=== PATIENT | female | born 1995 | race Caucasian/White ===

== ENCOUNTER 2017-11-25 21:17 | Inpatient (IN) | payer OTHER ==
[~2017-11-25] VITALS: Ht 167.6 cm; Wt 96.2 kg
--- NOTE | 2017-11-25 21:24 | ED CARDIAC/CP/PALPITATIONS ---
History of Present Illness General Chief Complaint: Syncope and Near-Syncope Stated Complaint: BIBA SYNCOPE/TACHYCARDIA Source: patient, family Exam Limitations: no limitations Vital Signs & Intake/Output Vital Signs & Intake/Output Vital Signs Date Time Temp Pulse Resp B/P B/P Pulse O2 O2 Flow FiO2 Mean Ox Delivery Rate 11/26 0038 111 18 118/73 100 Room Air 11/26 0000 105 118/73 11/250 113 118/65 11/25 2199 113 118/65 11/253 114 20 118/65 100 Nasal 4.0L Cannula 11/25 2137 112 18 123/64 100 Nasal 4.0L Cannula 11/25 2136 120 153/73 11/25 2136 164 154/78 11/26 2135 164 153/78 11/26 2123 98.8 160 20 156/72 96 Room Air ED Intake and Output 11/26 0000 11/25 1200 Intake Total Output Total Balance Patient 200 lb Weight Weight Estimated Measurement Method Allergies Coded Allergies: NO KNOWN ALLERGIES (11/25/17) Reconcile Medications Ethinyl Estradiol/Drospirenone (Ocella 3 MG-0.03 MG Tablet) 0.03 MG-3 MG TABLET 1 TAB PO DAILY CONTROL (Reported) Triage Note: BIBA FROM [facility] S/P SYNCOPAL EPISODE. PATIENT REPORTS NAUSEA/VOMITTING BEFORE EPISODE OF NAUSEA BEGAN. PATIENT STATES "THIS HAPPENED A COUPLE YEARS AGO TOO BUT IM NOT SURE WHAT IT WAS". PATIENT ARRIVES ALERT, ORIENTED, SPEECH CLEAR. PROVIDER AT BEDSIDE. PATIENT PLACED ON CHICKEN HANDLER HR:170'S. Triage Nurses Notes Reviewed? yes Onset: Abrupt Duration: minute(s): Timing: single episode today Quality/Severity: moderate Location: central Radiation: no radiation Activities at Onset: "I was at [employer]" Modifying Factors: Improves With: rest. : No Patient currently breastfeeds: No HPI: 22 yo woman presents with syncope. She shares that she was eating dinner at [employer].... She had had part of [place]. She notes that she felt palpitations and suddenly, briefly passed out. She had never exprienced this symptom before. She notes that she felt lightheaded and dizzy. Per the medics, her pulse was 160's with stable blood pressure. Past History Travel History Traveled to [place] past 21 day No Medical History Any Pertinent Medical History? see below for history Neurological: NONE EENT: NONE Cardiovascular: NONE Respiratory: asthma Gastrointestinal: NONE Hepatic: NONE Renal: NONE Musculoskeletal: NONE Psychiatric: NONE Endocrine: NONE Blood Disorders: NONE Cancer(s): NONE Surgical History Surgical History: none Psychosocial History What is your primary language Jordanian Tobacco Use: Never used ETOH Use: occasional use Illicit Drug Use: marijuana Family History Hx Contributory? No Review of Systems Review of Systems Constitutional: Reports: no symptoms. EENTM: Reports: no symptoms. Respiratory: Reports: no symptoms. Cardiovascular: Reports: no symptoms. GI: Reports: no symptoms. Genitourinary: Reports: no symptoms. Musculoskeletal: Reports: no symptoms. Skin: Reports: no symptoms. Neurological/Psychological: Reports: no symptoms. Hematologic/Endocrine: Reports: no symptoms. Immunologic/Allergic: Reports: no symptoms. All Other Systems: Reviewed and Negative Physical Exam Physical Exam General Appearance: well developed/nourished, mild distress Head: atraumatic, normal appearance Eyes: Bilateral: normal appearance. Ears, Nose, Throat: normal pharynx, normal ENT inspection Neck: normal inspection, supple, full range of motion Respiratory: normal breath sounds, chest non-tender, no respiratory distress, quiet respiration, lungs clear Cardiovascular: tachycardic Gastrointestinal: normal bowel sounds, soft, non-tender Back: normal inspection, normal range of motion Extremities: normal inspection Neurologic/Psych: no motor/sensory deficits, awake, alert, oriented x 3 Skin: intact, normal color Lymphatic: adenopathy Core Measures ACS in differential dx? No CVA/TIA Diagnosis No Sepsis Present: No Sepsis Focused Exam Completed? No Progress Differential Diagnosis: svt vs other. Plan of Care: Orders Procedure Date/time Status Regular Diet 11/26 B Active LIPID PANEL 11/26 599 Active CBC WITHOUT DIFFERENTIAL 11/26 599 Active BASIC ELECTROLYTES PLUS BUN&CR 11/26 599 Active ECHOCARDIOGRAM 11/26 599 Active Pathway - chart 11/26 012 Active House Staff 11/26 012 Active Weight 11/26 112 Active Vital Signs 11/26 112 Active Teach/Educate 11/26 112 Active Pain Treatment and Response 11/26 112 Active Nutritional Intake, Monitor 11/26 112 Active Isolation 11/26 112 Active Intake & Output 11/26 112 Active Patient Care Conference 11/26 112 Active Activity/Ambulation 05/21 0113 Active Lab Add-on Test 11/26 UNK Active VTE Mechanical Prophylaxis 11/26 UNK Active Saline Lock 11/25 2322 Active Misc Message 11/25 2322 Active ED Holding Orders 11/25 2322 Active Admit to inpatient 11/25 2322 Active Vital Signs 11/25 2322 Active Code Status 11/25 2322 Active URINE DRUG SCREEN FOR ER ONLY 11/25 2321 Complete EKG 11/25 2156 Active THYROID STIMULATING HORMONE 11/25 2137 Active GLYCOSYLATED HGB 11/25 2137 Active FREE T4 11/25 2137 Active TROPONIN LEVEL 11/26 2123 Active LIPASE 11/26 2123 Active HEPATIC FUNCTION PANEL 11/26 2123 Active HUMAN BETA HCG SCREEN 11/26 2123 Active ETHANOL 11/26 2123 Active D-DIMER 11/26 2123 Complete CBC WITHOUT DIFFERENTIAL 11/26 2123 Complete BASIC METABOLIC PANEL 11/26 2123 Active AMYLASE 11/26 2123 Active Intake & Output 11/25 2120 Active EKG 11/25 2117 Active Patient Data 11/25 1644 Active Current Medications Sig/Sagar Start time Last Medication Dose Stop Time Status Admin Enoxaparin Sodium 40 MG DAILY 11/26 0900 AC (Lovenox) Adenosine 12 MG ONCE ONE 11/25 2144 CAN (Adenocard) 11/25 2145 Diltiazem HCl 10 MG ONCE ONE 11/25 2144 CAN (Cardizem) 11/25 2145 Verapamil HCl 5 MG ONE ONE 11/25 2129 CAN (Calan 5MG/2ML Inj) 11/25 2130 Laboratory Tests 11/25/178: Urine Opiates Screen < 100, Methadone Screen < 40, Barbiturate Screen < 60, Ur Phencyclidine Scrn < 6.00, Amphetamines Screen < 100, U Benzodiazepines Scrn < 85, Urine Cocaine Screen < 50, Urine Cannabis Screen > 80.00 H 11/25/172137: Anion Gap 14, Estimated GFR > 60, BUN/Creatinine Ratio 12.5, Glucose 128 H, Hemoglobin A1c Pending, Calcium 9.3, Total Bilirubin 0.3, Direct Bilirubin 0.1, AST 15, ALT 11, Alkaline Phosphatase 53, Troponin I < 0.01, Total Protein 7.0, Albumin 4.1, Amylase 65, Lipase 79, TSH 1.090, Free T4 1.03, Total Beta HCG NEGATIVE, D-Dimer High Sensitivty < 200, CBC w Diff NO MAN DIFF REQ, RBC 4.98, MCV 81.8, MCH 27.6, MCHC 33.7, RDW 13.2, MPV 7.9, Gran % 71.0, Lymphocytes % 19.9 L, Monocytes % 5.5, Eosinophils % 3.3, Basophils % 0.3, Absolute Granulocytes 12.6 H, Absolute Lymphocytes 3.5 H, Absolute Monocytes 1.0 H, Absolute Eosinophils 0.6, Absolute Basophils 0.1, Serum Alcohol 10.0 Diagnostic Imaging: Viewed by Me: Radiology Read. Discussed w/RAD: Radiology Read. CXR Impression: PATIENT: HIPOLITO MONTELONGO PRESENT AGE: 22 PATIENT ACCOUNT NO: [id number] : 96 LOCATION: [facility] ORDERING PHYSICIAN: Nathen Burrows MD SERVICE DATE: 11/25/17 EXAM TYPE: RAD - XRY- PORTABLE CHEST XRAY EXAMINATION: CHEST 1 VIEW CLINICAL INFORMATION: Chest pain. COMPARISON: None. TECHNIQUE: An AP view of the chest is provided. FINDINGS: The cardiac silhouette is not enlarged. The mediastinal and hilar contours are unremarkable. There are neither pleural effusions nor pneumothoraces. There are no consolidations. The osseous structures are unremarkable. IMPRESSION: No evidence for acute disease. DICTATED BY: Jorgito Perez MD DATE/TIME DICTATED:2318 FINISHER CARD TENDER:STAR DATE/TIME TRANSCRIBED:11/25/172318 CONFIDENTIAL, DO NOT COPY WITHOUT APPROPRIATE AUTHORIZATION. <Electronically signed in Other Vendor System> SIGNED BY: Jorgito Perez MD 11/25/17 1417 Initial ED EKG: svt 150's Repeat EKG: changed (rate low 100's) Departure Departure Disposition: STILL A PATIENT Condition: Stable Clinical Impression Primary Impression: SVT (supraventricular tachycardia) Referrals: Fernando Ayala MD Departure Forms: Customer Survey General Discharge Information Admission Note Spoke With: Nish Moore MD Documentation of Exam: Documentation of any treatments & extenuating circumstances including Concerns Regarding Discharge (functional status, medication knowledge or non-compliance, living conditions, etc.) that warrant an admission rather than observation: Pt with syncope and svt/sinus tach, unresponsive to adenosince 6mg, 12mg, requiring multiple rounds of rate controlling medications.... discussed with dr. mehta. Critical Care Note Critical Care Note Critical Care Time: 30-74 min
[2017-11-25] MEDS ORDERED: OCELLA 3 MG-0.1 EACH PO (21:44)
[2017-11-25 22:02] LABS: ABSOLUTE BASOPHIL COUNT 0.1 /CUMM (0.0-0.2); ABSOLUTE EOSINOPHIL COUNT 0.6 /CUMM (0.0-0.7); ABSOLUTE GRANULOCYTE CT 12.6 /CUMM (1.4-6.5); ABSOLUTE LYMPH COUNT 3.5 /CUMM (1.2-3.4); BASOPHIL % 0.3 % (0.0-2.0); EOSINOPHIL % 3.3 % (0-5); HEMATOCRIT 40.8 % (37-47); MEAN CORPUSCULAR HGB 27.6 PG (27.0-31.0); MEAN CORPUSCULAR HGB CONC 33.7 G/DL (33.0-37.0); MEAN CORPUSCULAR VOLUME 81.8 FL (81.0-99.0); MEAN PLATELET VOLUME 7.9 FL (7.4-10.4); PLATELET COUNT 419 /CUMM (130-400); RBC DISTRIBUTION WIDTH 13.2 % (11.5-14.5); RED BLOOD CELL CT 4.98 /CUMM (4.20-5.40); WHITE BLOOD CELL COUNT 17.7 /CUMM (4.8-10.8)
--- NOTE | 2017-11-25 23:23 | RADIOLOGY REPORT ---
EXAMINATION: CHEST 1 VIEW CLINICAL INFORMATION: Chest pain. COMPARISON: None. TECHNIQUE: An AP view of the chest is provided. FINDINGS: The cardiac silhouette is not enlarged. The mediastinal and hilar contours are unremarkable. There are neither pleural effusions nor pneumothoraces. There are no consolidations. The osseous structures are unremarkable. IMPRESSION: No evidence for acute disease.
--- NOTE | 2017-11-26 00:10 | History & Physical ---
Ellie Mathur MD 11/26/17 0010: General Information and HPI MD Statement: I have seen and personally examined HIPOLITO MONTELONGO and documented this H&P. The patient is a 22 year old F who presented with a patient stated chief complaint of [syncope]. Source of Information: patient Exam Limitations: no limitations History of Present Illness: 22-year-old female with no past medical history who was brought in by ambulance for evaluation after syncope patient reports that she was at [facility] around 7:30 PM. Patient did not eat anything all day. She drank 1 symone. After which she was on her way to use the restroom when she feels nauseous, dizzy ,week and vomited once and passed out. The patient cannot recall the incidents however she regained consciousness right after and felt much better. Patient denies any chest pain, lightheadedness, palpitation before or after syncope. Of note the patient had 2 episodes of syncope in the past at the age of 7 and 14 however she did not seek medical help for that, she thinks it was due to hypoglycemia. She also denies any headache or focal weakness or numbness. She denies recent travel or sick contacts, she is on control ([place] 1 tablet p.o. daily, her last menstrual period was 3 weeks ago The ED patient had heart rate of 170 and received adenosine 6 mg followed by another dose of 12 mg, she also received diltiazem 30 mg p.o., verapamil 5 mg, 2 doses of metoprolol 5 mg IV, after which her heart rate improved to 104 with normal intervals Allergies/Medications Allergies: Coded Allergies: NO KNOWN ALLERGIES (11/25/17) Home Med list Ethinyl Estradiol/Drospirenone (Ocella 3 MG-0.03 MG Tablet) 0.03 MG-3 MG TABLET 1 TAB PO DAILY CONTROL (Reported) Past History Travel History Traveled to [place] past 21 day No Medical History Neurological: NONE EENT: NONE Cardiovascular: NONE Respiratory: asthma Gastrointestinal: NONE Hepatic: NONE Renal: NONE Musculoskeletal: NONE Psychiatric: NONE Endocrine: NONE Blood Disorders: NONE Cancer(s): NONE Surgical History Surgical History: non-contributory Past Family/Social History Family History Relations & Conditions if any FATHER Relation not specified for: FH: pulmonary embolism Psychosocial History ETOH Use: occasional use Illicit Drug Use: marijuana Review of Systems Review of Systems Constitutional: Reports: weakness. Cardiovascular: Reports: syncope. Respiratory: Denies: no symptoms. GI: Denies: no symptoms. Genitourinary: Denies: no symptoms. Musculoskeletal: Denies: no symptoms. Skin: Denies: no symptoms. Neurological/Psychological: Denies: no symptoms. Exam & Diagnostic Data Last 24 Hrs of Vital Signs/I&O Vital Signs Date Time Temp Pulse Resp B/P B/P Pulse O2 O2 Flow FiO2 Mean Ox Delivery Rate 11/26 0038 111 18 118/73 100 Room Air 11/26 0000 105 118/73 11/25 2199 113 118/65 11/25 2199 113 118/65 11/25 2142 114 20 118/65 100 Nasal 4.0L Cannula 11/25 2137 112 18 123/64 100 Nasal 4.0L Cannula 11/25 2136 120 153/73 11/25 2136 164 154/78 11/26 2135 164 153/78 11/26 2123 98.8 160 20 156/72 96 Room Air Intake & Output 11/26 0800 11/26 0000 11/25 1600 Intake Total Output Total Balance Patient 212 lb 200 lb Weight Weight Estimated Measurement Method Physical Exam General Appearance Alert, Oriented X3, Cooperative, OVERWEIGHT HEENT Atraumatic, PERRLA, EOMI, Mucous Membr. moist/pink Neck Supple, No JVD Cardiovascular Normal S1, Normal S2 Lungs Clear to Auscultation, Normal Air Movement Abdomen Normal Bowel Sounds, Soft Neurological Normal Speech, Strength at 5/5 X4 Ext, Normal Tone, Sensation Intact, Cranial Nerves 3-12 NL Extremities No Clubbing, No Cyanosis, No Edema Vascular Normal Pulses Assessment/Plan Assessment: 22-year-old female with no past medical history who was brought in by ambulance for evaluation after syncope patient reports that she was at [facility] around 7:30 PM. Patient did not eat anything all day. She drank 1 symone. After which she was on her way to use the restroom when she feels nauseous, dizzy ,week and vomited once and passed out. Differential diagnosis includes arrhythmia versus vasovagal Vitals on admission: Blood pressure 1 1 8/73, pulse 113, pulse ox 100 on room air Labs on admission: CBC showed leukocytosis with WBC 17.7, platelets 419, stable H&H, BEP shows sodium 140, potassium 3.8, BUN 10, creatinine 0.8, glucose 128, TSH 1, free T4 1.03, d-dimer less than 200, U tox was negative except for cannabis more than 80 Chest x-ray was within normal limits Problem list: Syncope SVT Plan: Admit to telemetry Continuous telemetry monitoring Vitals every shift Cardiology consult appreciated Echocardiogram U tox Patient is very anxious to go home first thing in the morning. She does not want to take days off from her work Regular diet DVT prophylaxis with subcutaneous Lovenox Full code As Ranked By This Provider Problem List: 1. SVT (supraventricular tachycardia) Core Measures/Misc (03/25) Acute Coronary Syndrome ACS Diagnosis: No Congestive Heart Failure Congestive Heart Failure Diagnosis No Cerebrovascular Accident CVA/TIA Diagnosis: No VTE (View Protocol) VTE Risk Factors Estrogen Therapy No Mechanical VTE Prophylaxis d/t N/A MechProphylax Ordered No VTE Pharm Prophylaxis d/t NA PharmProphylax ordered Sepsis (View protocol) Sepsis Present: No Joe Byers MD 11/26/17 0012: Resident Review Statement Resident Statement: discussed with international logistics manager, agreed with international logistics manager Other Findings: 22 yo morbidly obese F with no past medical history, and who was in her usual state of health till this evening. At 7:30 PM, she was at a restaurant ([employer]) , hadn't eaten all day, had one symone (alcohol) there, but no food, and was going to the restroom when she felt nauseaous, felt weak, vomited once, couldn' t make it to the bathroom, and then does NOT remember events then on. Prior to this event, she did not have any other symptom, and was confused only for few seconds after the incident. Her only medication is OCP, and she had taken Zyrtec earlier today. Had "passed out" two years before, did not get evaluated for that. Last time, she was not nauseaous or weak though. She has had two other similar episodes in her teenage but self-attributed to hypoglycemia (she is NOT diabetic) and did not get it checked then. 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 Never seen a senior materials planner that she can remember. Smoking- occassional EtOH- 2 /week Recreational- Marijuana, no others FH: Father- Pulmonary embolism Grandfather (Paternal)- [place] Maternal grandmother- Breast cancer In the ED, she was found to be in SVT, required IV Metoprolol tartarate 5 mg, 6 mg of IV Adenosine, 12 mg of Adenosine, another IV Metoprolol tartarate 5 mg ( total 10 mg), IV Verapamil 5 mg, and then PO Diltiazem 30 mg. At the time of interview, she was with her male friend and resting, with HR around 104s. She is being admitted in the telemetry floor for the management of following issues: # New supraventicular tachycardia, rate getting controlled Patient's EKG pattern and her clinical diagnosis gives the diagnosis of SVT, and the fact that she responded to multiple medications only, she requires telemetry monitoring and further Cardiologic evaluation and management. Echocardiogram ordered to rule out functional and structural status of the heart. Thyroid function test added to existing labs. # Syncope, cardiologic (likely 2/2 SVT) Patient lost consciousness during the incident, and given her current cardiac rhythm, she likely had SVT at the restaurant as well, making cardiac cause as most likely. Other causes need to be in the differentials too. Telemetric monitoring for changes in cardiac rate/rhythm, and close observation on blood pressure. Currently she does not have any focal neurologic deficit that would warrant any neurologic investigation or consultation. #Housekeeping Diet: Regular diet DVT ppx: SQ Lovenox Code status: Full code Of note, patient mentioned that she is curious to get discharged as soon as possible. Nish Moore 11/26/17 0339: Attending MD Review Statement Attending Statement Attending MD Statement: examined this patient, discuss w/resident/PA/ELECTROPLATING TECHNICIAN, agreed w/resident/PA/ELECTROPLATING TECHNICIAN, reviewed EMR data (avail), reviewed images, amended to note Attending Assessment/Plan: CC: Syncope PMH: History of murmur Patient was brought in ER through EMS from [facility] after episode of syncope. Patient states that she finished her dinner, had one glass of Symone and was going to bathroom on her way she suddenly passed out she felt nauseous before the episode but does not recall anything thereafter. She woke up on the floor and people were surrounding her, she was confused for less than 1 minute and completely oriented thereafter. Given his sudden syncopal episode, EMS was called and patient was transferred to hospital. In route her heart rate was elevated according to EMS. Patient currently denies any palpitation, dizziness, chest pain. She had 2 fainting episodes in the past, at the age of 7 and 14. She was never investigated for any arrhythmias. Vitals: Temperature 98.8, pulse 160s on arrival improved to 105 after treatment, saturating 96% on room air, RR 20, blood pressure 156/72 On exam: A O 3, cooperative, no acute distress, neck supple, JVD normal, no lymphadenopathy, mucosa moist, no focal neurological deficit, no dependent edema , no obvious skin rashes or inflammation CVS: S1-S2, RRR. RS: Clear to auscultate bilaterally. Abdomen: Soft, NT, ND, bowel sounds present. CXR: No evidence for acute disease. Assessment and plan 22-year-old female with no significant past medical history presented in ER after syncope and collapse which happened at a restaurant. She was found to have supraventricular tachycardia with heart rate in the 160s to 170s. Patient received 6 mg adenosine followed by 12 mg of Indocin without much response. Then she received 2 doses of IV metoprolol 5 mg each and 5 mg of verapamil. With all this treatment her heart rate came down to 105, sinus tachycardia. Currently patient asymptomatic given her syncopal episode and SVT she would benefit from telemetry monitoring, cardiac consultation for further evaluation. Even though patient is on oral contraception, low probability of PE. D-dimer negative. + Syncope and collapse + Supraventricular tachycardia - Admit to telemetry - Continuous telemetry monitoring - Cardiology consult - Transthoracic echocardiogram in a.m. - Check TSH - Check U tox - DVT prophylaxis - Patient wants to go home as soon as possible tomorrow morning, she does not want to miss anymore of days.
[2017-11-26 01:30] VITALS: BP 108/68
--- NOTE | 2017-11-26 03:41 | Admission Certification ---
Admission Certification Certification Statement - As attending physician, I certify that at the time of - admission, based on clinical presentation, severity of - symptoms, need for further diagnostic testing and - therapeutic interventions, and risk of adverse outcomes - without in-hospital treatment, in my clinical assessment, - this patient requires an acute hospital stay for a minimum - of two nights or longer. I have also considered psychsocial - factors such as support system, advanced age, financial - issues, cognitive issues, and failed out-patient treatments, - past re-admission history, safety of patient, and lack of - compliance as applicable. Specific rationale supporting this admission is: Supraventricular tachycardia, syncope and collapse
[2017-11-26 07:03] VITALS: BP 106/70
--- NOTE | 2017-11-26 07:17 | PN- Housestaff ---
Subjective Follow-up For: SVT syncope Tele-Events Since Last Visit: sinus rhythm/ sinus tachycardia 80s-110s overnight, no more episodes of SVT Subjective: no complaints this morning Review of Systems Constitutional: Reports: see HPI. Objective Last 24 Hrs of Vital Signs/I&O Vital Signs Date Time Temp Pulse Resp B/P B/P Pulse O2 O2 Flow FiO2 Mean Ox Delivery Rate 11/26 0703 98.7 93 20 106/70 98 Room Air 11/26 0130 99.3 120 20 108/68 98 Room Air 11/26 0038 111 18 118/73 100 Room Air 11/26 0000 105 118/73 11/25 2199 113 118/65 11/25 2199 113 118/65 11/25 214 114 20 118/65 100 Nasal 4.0L Cannula 11/25 2137 112 18 123/64 100 Nasal 4.0L Cannula 11/25 2136 120 153/73 11/25 2136 164 154/78 11/26 2135 164 153/78 11/26 2123 98.8 160 20 156/72 96 Room Air Intake & Output 11/26 1600 11/26 0800 11/26 0000 Intake Total 220 Output Total Balance 220 Intake, Oral 220 Patient 96.19 kg 90.718 kg Weight Weight Estimated Measurement Method Physical Exam General Appearance: Alert, Oriented X3, Cooperative, No Acute Distress Cardiovascular: Normal S1, Normal S2, No Murmurs, tachycardic Lungs: Clear to Auscultation, Normal Air Movement Abdomen: Normal Bowel Sounds, Soft, No Tenderness, No Masses Extremities: No Clubbing, No Cyanosis, No Edema, Normal Pulses Current Medications: Current Medications Sig/Sagar Start time Last Medication Dose Route Stop Time Status Admin Adenosine 12 MG ONCE ONE 11/25 2144 CAN IV 11/25 2145 Adenosine 0 .STK-MED ONE 11/25 2140 DC IV Adenosine 0 .STK-MED ONE 11/26 2139 DC IV Adenosine 0 .STK-MED ONE 11/25 2134 DC IV Adenosine 0 .STK-MED ONE 11/25 2130 DC IV Adenosine 6 MG ONCE ONE 11/25 2129 DC 11/25 IV 11/25 Adenosine 12 MG ONCE ONE 11/25 2129 DC 11/25 IV 11/25 Diltiazem HCl 30 MG STAT STA 11/25 2238 DC 11/26 PO 11/25 2240 0000 Diltiazem HCl 10 MG ONCE ONE 11/25 2144 CAN IV 11/25 2145 Enoxaparin Sodium 40 MG DAILY 11/26 0900 AC SC Metoprolol Tartrate 5 MG ONCE ONE 11/25 2144 DC 11/25 IV 11/25 Metoprolol Tartrate 0 .STK-MED ONE 11/25 2141 DC IV Metoprolol Tartrate 0 .STK-MED ONE 11/25 2136 DC IV Metoprolol Tartrate 5 MG ONCE ONE 11/25 2129 DC 11/25 IV 11/25 Verapamil HCl 5 MG ONE ONE 11/25 2144 DC 11/25 IV 11/25 Verapamil HCl 5 MG ONE ONE 11/25 2129 CAN IV 11/25 2130 Last 24 Hrs of Lab/Jhonatan Results Last 24 Hrs of Labs/Mics: Laboratory Tests 11/26/17 0646: Anion Gap 9, Estimated GFR > 60, BUN/Creatinine Ratio 11.3, Triglycerides 159 H , Cholesterol 147, LDL Cholesterol, Calc 67, HDL Cholesterol 49, Cholesterol/HDL Ratio 3, CBC w Diff NO MAN DIFF REQ, RBC 4.35, MCV 82.6, MCH 28.0, MCHC 33.9, RDW 13.1, MPV 8.2, Gran % 79.4 H, Lymphocytes % 12.9 L, Monocytes % 6.1, Eosinophils % 1.5, Basophils % 0.1, Absolute Granulocytes 8.8 H, Absolute Lymphocytes 1.4, Absolute Monocytes 0.7 H, Absolute Eosinophils 0.2, Absolute Basophils 0 11/25/178: Urine Opiates Screen < 100, Methadone Screen < 40, Barbiturate Screen < 60, Ur Phencyclidine Scrn < 6.00, Amphetamines Screen < 100, U Benzodiazepines Scrn < 85, Urine Cocaine Screen < 50, Urine Cannabis Screen > 80.00 H 11/25/172137: Anion Gap 14, Estimated GFR > 60, BUN/Creatinine Ratio 12.5, Glucose 128 H, Hemoglobin A1c Pending, Calcium 9.3, Total Bilirubin 0.3, Direct Bilirubin 0.1, AST 15, ALT 11, Alkaline Phosphatase 53, Troponin I < 0.01, Total Protein 7.0, Albumin 4.1, Amylase 65, Lipase 79, TSH 1.090, Free T4 1.03, Total Beta HCG NEGATIVE, D-Dimer High Sensitivty < 200, CBC w Diff NO MAN DIFF REQ, RBC 4.98, MCV 81.8, MCH 27.6, MCHC 33.7, RDW 13.2, MPV 7.9, Gran % 71.0, Lymphocytes % 19.9 L, Monocytes % 5.5, Eosinophils % 3.3, Basophils % 0.3, Absolute Granulocytes 12.6 H, Absolute Lymphocytes 3.5 H, Absolute Monocytes 1.0 H, Absolute Eosinophils 0.6, Absolute Basophils 0.1, Serum Alcohol 10.0 Assessment/Plan Assessment: 22 year old female with no past medical history syncopized in the setting of nausea and vomiting and was admitted for SVT. Syncope: Likely vasovagal from Valsalva with vomiting vs arrhythmia Check orthostatic vital signs May need outpatient Holter monitor SVT: Asymptomatic, No complaints of palpitations during SVT Urine toxicology negative, no significant caffeine intake Given adenosine x 2 in the ED + verapamil, cardizem, and metoprolol Continue to monitor on telemetry monitoring Cardiology consultation Check echocardiogram TSH negative Regular diet DVT ppx-lovenox subcutaneous Full code Problem List: 1. SVT (supraventricular tachycardia) 2. Syncope Pain Ratin Pain Location: n/a Pain Goal: Pain 4 or less Pain Plan: prn Tomorrow's Labs & Rationales: none
[2017-11-26 08:00] LABS: ABSOLUTE BASOPHIL COUNT 0 /CUMM (0.0-0.2); ABSOLUTE EOSINOPHIL COUNT 0.2 /CUMM (0.0-0.7); ABSOLUTE GRANULOCYTE CT 8.8 /CUMM (1.4-6.5); ABSOLUTE LYMPH COUNT 1.4 /CUMM (1.2-3.4); ABSOLUTE MONOCYTE COUNT 0.7 /CUMM (0.10-0.60); BASOPHIL % 0.1 % (0.0-2.0); EOSINOPHIL % 1.5 % (0-5); GRANULOCYTE % 79.4 % (42.2-75.2); HEMATOCRIT 35.9 % (37-47); MEAN CORPUSCULAR HGB CONC 33.9 G/DL (33.0-37.0); MEAN CORPUSCULAR VOLUME 82.6 FL (81.0-99.0); MEAN PLATELET VOLUME 8.2 FL (7.4-10.4); PLATELET COUNT 282 /CUMM (130-400); RBC DISTRIBUTION WIDTH 13.1 % (11.5-14.5); RED BLOOD CELL CT 4.35 /CUMM (4.20-5.40)
--- NOTE | 2017-11-26 12:38 | Patient Discharge Instructions ---
Discharge Instructions General Discharge Information You were seen/treated for: unresponsiveness increased heart rate Special Instructions: follow up with primary care physician within one week of discharge follow up with cardiolgist within this week of disharge (november 29 or sundaynovember 30) Acute Coronary Syndrome Inclusion Criteria At DC or during hospital stay patient has or had the following: ACS DIAGNOSIS No Discharge Core Measures Meds if any: Prescribed or Continued at Discharge Meds if any: NOT Prescribed or Continued at Discharge Congestive Heart Failure Inclusion Criteria At DC or during hospital stay patient has or had the following: CHF DIAGNOSIS No Discharge Core Measures Meds if any: Prescribed or Continued at Discharge Meds if any: NOT Prescribed or Continued at Discharge Cerebrovascular accident Inclusion Criteria At DC or during hospital stay patient has or had the following: CVA/TIA Diagnosis No Discharge Core Measures Meds if any: Prescribed or Continued at Discharge Meds if any: NOT Prescribed or Continued at Discharge Venous thromboembolism Inclusion Criteria VTE Diagnosis No VTE Type NONE VTE Confirmed by (Test) NONE Discharge Core Measures - Per Current guidelines, there needs to be overlap - treatment for the first 5 days of Warfarin therapy. - If discharged on Warfarin prior to 5 days of - overlap therapy, the patient will need to be - assessed for post discharge needs including - *Post discharge parental anticoagulation - *Warfarin and/or parental anticoagulation education - *Follow up date to check INR post discharge At least 5 days overlap therapy as Inpatient No Meds if any: Prescribed or Continued at Discharge Note: Overlap Therapy is Warfarin and Anticoagulant Meds if any: NOT Prescribed or Continued at Discharge
--- NOTE | 2017-11-26 12:43 | Cons- Cardiology ---
General Information and HPI Allergies/Medications Allergies: Coded Allergies: NO KNOWN ALLERGIES (11/25/17) Home Med List: Ethinyl Estradiol/Drospirenone (Ocella 3 MG-0.03 MG Tablet) 0.03 MG-3 MG TABLET 1 TAB PO DAILY CONTROL (Reported) Metoprolol Succ XL (Toprol XL) 25 MG TAB 1 TAB PO DAILY SVT . Past History Travel History Traveled to [place] past 21 day No Medical History Blood Transfusion Hx: No Neurological: NONE EENT: NONE Cardiovascular: NONE Respiratory: asthma Gastrointestinal: NONE Hepatic: NONE Renal: NONE Musculoskeletal: NONE Psychiatric: NONE Endocrine: NONE Blood Disorders: NONE Cancer(s): NONE Surgical History Surgical History: 1 Family History Relations & Conditions If Any: FATHER Relation not specified for: FH: pulmonary embolism Psychosocial History Where Do You Live? Home Smoking Status: Never Smoked ETOH Use: occasional use Illicit Drug Use: marijuana Assessment/Plan Assessment/Plan Assessment: 1. Syncope 2. Paroxysmal SVT, currently in sinus rhythm 3. Unremarkable echocardiogram Plan: * start Toprol-XL 25 milligrams daily * okay for discharge from cardiac standpoint * follow-up in the office in 1 week Consult Acknowledgment - Thank you for your consult request.
[2017-11-26] MEDS ORDERED: TOPROL XL25 M1 PO ×2 (13:37→13:46)
[2017-11-26 14:00] VITALS: BP 114/80
[2017-11-26 14:33] VITALS: BP 108/74
--- NOTE | 2017-11-26 14:46 | ECHOCARDIOGRAM REPORT ---
HIPOLITO MONTELONGO Age: 22 : 1995 Gender: F Exam Date: 11/26/2017 11:03 Exam Location: [facility] Ht (in): 66 Wt (lb): 200 BSA: 2.09 BP: 106 / 70 Ordering Physician: Joe Byers MD Referring Physician: Joe Byers MD Technologist: Joe Zamorano [facility] Room Number: [id number] Indications: SVT Rhythm: Sinus Technical Quality: good FINDINGS Left Ventricle Normal size left ventricle. Normal left ventricular wall thickness. Normal left ventricular ejection fraction visually estimated at > 60%. Normal left ventricular diastolic filling pattern for age. Right Ventricle Normal right ventricular size and function. Right Atrium Normal right atrial size. Left Atrium Normal left atrial size. Mitral Valve Mild mitral annular calcification. Trace mitral regurgitation. Aortic Valve Structurally normal trileaflet aortic valve. No aortic stenosis. No aortic regurgitation. Tricuspid Valve Tricuspid valve not well visualized, grossly normal. Trace tricuspid regurgitation. No evidence of pulmonary hypertension. Pulmonic Valve Pulmonic valve not well visualized, grossly normal. Trace pulmonic regurgitation. Pericardium No pericardial effusion. Great Vessels Normal size aortic root. CONCLUSIONS Normal left ventricular ejection fraction visually estimated at > 60%. Normal size left ventricle. Mild mitral annular calcification. Trace mitral regurgitation. Trace tricuspid regurgitation. No evidence of pulmonary hypertension. Trace pulmonic regurgitation. Deacon Tobias M.D. (Electronically Signed) Final Date: 26 Nov 2017 14:45 MEASUREMENTS (Male / Female) Normal Values 2D ECHO LV Diastolic Diameter PLAX 4.6 cm 4.2 - 5.9 / 3.9 - 5.3 cm LV Systolic Diameter PLAX 2.7 cm 2.1 - 4.0 cm LV Fractional Shortening PLAX 41.3 % 25 - 46 % LV Ejection Fraction 2D Teich 72.2 % IVS Diastolic Thickness 0.8 cm LVPW Diastolic Thickness 0.7 cm LV Relative Wall Thickness 0.3 RV Internal Dim ED PLAX 2.5 cm 1.9 - 3.8 cm LVOT Diameter 1.7 cm Aortic Root Diameter 2.1 cm LA Systolic Diameter LX 3.1 cm 3.0 - 4.0 / 2.7 - 3.8 cm Ascending Aorta Diameter 2.6 cm DOPPLER AV Peak Velocity 175.0 cm/s AV Peak Gradient 12.3 mmHg AV Mean Velocity 114.0 cm/s AV Mean Gradient 6.0 mmHg AV Velocity Time Integral 36.3 cm LVOT Peak Velocity 121.0 cm/s LVOT Peak Gradient 5.9 mmHg LVOT Mean Velocity 72.5 cm/s LVOT Mean Gradient 3.0 mmHg LVOT Velocity Time Integral 24.2 cm LVOT Stroke Volume 54.9 cm AV Area Cont Eq vti 1.5 cm AV Area Cont Eq pk 1.6 cm MV Peak Velocity 109.0 cm/s MV Peak Gradient 4.8 mmHg MV Mean Velocity 66.9 cm/s MV Mean Gradient 2.0 mmHg Mitral E Point Velocity 106.0 cm/s Mitral A Point Velocity 63.7 cm/s Mitral E to A Ratio 1.7 MV PHT Velocity 113.0 cm/s MV Deceleration Barry 762.0 cm/s MV Pressure Half Time 44.5 ms MV Area PHT 4.9 cm MV Deceleration Time 144.0 ms TR Peak Velocity 246.0 cm/s TR Peak Gradient 24.2 mmHg Right Atrial Pressure 5.0 mmHg Pulmonary Artery Systolic Pressu 29.2 mmHg Right Ventricular Systolic Press 29.2 mmHg PV Peak Velocity 108.0 cm/s PV Peak Gradient 4.7 mmHg PV Mean Velocity 76.0 cm/s PV Mean Gradient 3.0 mmHg PV Velocity Time Integral 24.9 cm LV E' Lateral Velocity 14.8 cm/s Mitral E to LV E' Lateral Ratio 7.2 LV E' Septal Velocity 12.8 cm/s Mitral E to LV E' Septal Ratio 8.3
== END 2017-11-26 15:56 | DRG 310 ==
LOC: ERH 21:17 → ERHI 23:23 → 1NO 23:23 → ENRESERV 11-26 → 1NO 11-26 01:11 → ENPENDDIS 11-26 15:38 → 1NO 11-26 15:56
PROVIDERS: Pediatrics; Student in an Organized Health Care Education/Training Program
DX: I47.1 Supraventricular tachycardia (principal); E66.01 Morbid (severe) obesity due to excess calories; Z68.34 Body mass index [BMI] 34.0-34.9, adult; F12.90 Cannabis use, unspecified, uncomplicated; R55 Syncope and collapse
CPT/HCPCS: ERO; 36592; 71045; 80307; 82436; 93005; 93010; 93306; 96374; 96375; 99291; G0480; J0153; J1650